=== PATIENT | female | born 1950 | race Caucasian/White ===

== ENCOUNTER 2019-05-11 11:19 | Day surgery (SDC) | payer MEDICARE, SELFPAY ==
[2019-05-11] VITALS (7 sets, daily range): BP systolic 101–118; BP diastolic 51–63; PULSE 64–73; RESP 16; TEMP 36.3–37.2; O2SAT 92–94; BMI 29.6
[2019-05-11 12:05] LABS: Bedside Glucose 125 mg/dL (70-110)
[2019-05-11] MEDS: Bupivacaine 0.5% PF 10 ML VIAL (13:00)
[2019-05-11] MEDS: dexAMETHasone 4 MG/ML Vial (13:00)
[2019-05-11] MEDS: Triamcinolone Acetonide 40 MG/ML Vial (13:00)
--- NOTE | 2019-05-11 13:23 | PCM.DC.POD ---
Discharge Activity: Return to Normal Activity Weight Bearing Status: Weight bearing as tolerated Allergies/Adverse Reactions: Allergies No Known Allergies Allergy (Verified 05/09/19 12:42) Medications to take at Discharge Aspirin [Aspir 81] 81 mg PO DAILY 05/09/19 Calcium Carbonate [Calcium] 1,200 mg PO DAILY 05/09/19 Duloxetine HCl 30 mg PO BID 05/09/19 Fish Oil/Dha/Epa [Fish Oil 1,200 mg Fish Oil] 1 ea PO DAILY 05/09/19 Gabapentin [Neurontin] 600 mg PO BID 05/09/19 Levothyroxine [Synthroid] 50 mcg PO DAILY 05/09/19 Lisinopril 20 mg PO DAILY 05/09/19 Metformin HCl 1,000 mg PO BID 05/09/19 Multivitamin [Multivitamins] 1 ea PO DAILY 05/09/19 Omeprazole 20 mg PO DAILY 05/09/19 Ropinirole HCl [Requip] 2 mg PO BID 05/09/19 Simvastatin [Zocor] 40 mg PO QHS 05/09/19 traZODone [Desyrel] 1.5 tab PO QHS 05/09/19 Primary Care Physician: [facility] Doctor,Out of [Primary Care Provider] - Test Results: Test results from this visit will be discussed in further detail at your follow-up appointment, if applicable. Please Follow Up With: Reynaldo Llanes DPM When: one month
[2019-05-11] MEDS: oxyCODONE 5 MG Tablet PO (14:48)
[2019-05-11] MEDS: Acetaminophen 325 MG Tablet PO (14:48)
--- NOTE | 2019-05-11 22:12 | PCM.OPRPT ---
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 most of her pain is along the navicular cuneiform joint. she has had pain for several months and pain is not getting any better. patient has tried inserts and oral steroid/nsaids but still has pain. 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 I discussed continued pain. I discussed xray guided injection of midfoot. I discussed rationale for injection to hopefully lessen her pain. I discussed risks of this procedure not limited to joint infection, bleeding, tendon rupture, ligament injury, recurrent pain, elevated sugars. I informed patient that the arthritis of right midfoot is severe and that injection may not result in elimination of pain. she understands that if pain still persists, she may require naviculocuneiform fusion. on day of injection she states that the pain is also along the medial ankle. she wonders if injection will eliminate this pain. I informed patient that the pain along medial ankle could be due to tendonitis of posterior tibial tendon. if pain persists following injection, would recommend use of boot. patient understands risks. she consents to proceed. Discussed risk of char[place]. on exam, patient does not present with any swelling, warmth or arch collapse. suspect the pain she has is more arthritis. patient consents to proceed with injection. patient was transferred from pre-op holding area to operating room and placed on operating room table in supine position. she was placed under mac anesthesia. the right foot was prepped and draped in usual aseptic technique. the extensor hallucis longus and the tibialis anterior tendon were palpated and outlined. intra-op c arm was used to confirm location of navicular cuneiform joint. AFter location of navicular cun joint, an injection consisting of 0.5 cc Marcaine plain, 0.5 cc of kenalog, 0.5 cc dexamethazone was administered to the navicular cun joint. injection was passed into joint between tendons outline. Needle was removed. band aid was applied. patient was awakened and found to be in stable condition. neurovascular status unchanged to right foot. patient will continue with inserts. will call in oral steroid for the pain along medial ankle. if pain fails to improve, consider boot. f/u in 1 month
== END 2019-05-11 15:30 | disposition home or self-care (01) ==
LOC: SDC 11:21 → AC 11:24
PROVIDERS: Referring Provider Podiatrist Foot & Ankle Surgery; Visit Provider Podiatrist Foot & Ankle Surgery
PROC: (CPT 20605; principal; 2019-05-11 12:55)
DX: M19.071 Primary osteoarthritis, right ankle and foot (principal); E11.9 Type 2 diabetes mellitus without complications; I10 Essential (primary) hypertension; E03.9 Hypothyroidism, unspecified; M47.9 Spondylosis, unspecified; G25.81 Restless legs syndrome; G47.00 Insomnia, unspecified; K21.9 Gastro-esophageal reflux disease without esophagitis; E78.1 Pure hyperglyceridemia; F41.9 Anxiety disorder, unspecified; F32.9 Major depressive disorder, single episode, unspecified; Z79.84 Long term (current) use of oral hypoglycemic drugs; Z79.891 Long term (current) use of opiate analgesic; Z79.899 Other long term (current) drug therapy
CPT/HCPCS: 20600; 76000; 82962; J7120; J2405

== ENCOUNTER 2021-01-24 10:00 | Outpatient (RCR) | payer MEDICARE, SELFPAY ==
[2019-05-11 11:52] VITALS: BMI 29.6
[2021-01-24] MEDS: COVID-19 VACC, MRNA(PFIZER)/PF 30 MCG/0.3 ML SYRINGE IM (16:41)
[2021-02-14] MEDS: COVID-19 VACC, MRNA(PFIZER)/PF 30 MCG/0.3 ML SYRINGE IM (16:33)
== END 2021-04-22 23:59 ==
LOC: IMMUN 10:00
PROVIDERS: Visit Provider Family Medicine
DX: Z23 Encounter for immunization (principal)
CPT/HCPCS: 0001A; 0002A; 91300